=== PATIENT | female | born 2000 | race African-American/Black ===

== ENCOUNTER 2023-08-01 04:33 | Emergency (ER) | payer OTHER, SELFPAY ==
[2023-08-01] MEDS ORDERED: ANTIVENIN,CROTALIDAE (ANAVIP) 1 EACH VIAL ONE (13:18)
== END 2023-08-01 05:03 | disposition left against medical advice (07) ==
LOC: NAV ERS 04:33
DX: R52 Pain, unspecified (principal); R50.9 Fever, unspecified; R09.81 Nasal congestion; R53.83 Other fatigue
CPT/HCPCS: 99283; J0841